=== PATIENT | female | born 1960 | race American Indian/Alaskan Native ===

== ENCOUNTER 2016-04-27 07:35 | Outpatient (CLI) | payer BC ==
--- NOTE | 2016-04-27 11:45 | Mammography Report ---
BILATERAL DIGITAL SCREENING MAMMOGRAM with CAD: 04/27/16 07:30:00 CLINICAL: Routine screening. COMPARISON:04/21/15 FINDINGS: The breasts are heterogeneously dense, which may obscure small masses. No mass, architectural distortion or suspicious calcifications. IMPRESSION: No mammographic evidence of malignancy. BI-RADS CATEGORY: 1 - - Negative RECOMMENDATION: Routine mammographic screening in one year. COMMENT: Patient follow-up letters are generated by our [employer] application. The
== END 2016-04-27 07:36 | disposition home or self-care (01) ==
LOC: MAMMO 07:35
PROVIDERS: ATTEND Hospitalist
DX: Z12.31 Encounter for screening mammogram for malignant neoplasm of breast (principal)
CPT/HCPCS: 77067; G0202

== ENCOUNTER 2017-05-30 11:00 | Outpatient (CLI) | payer BC ==
--- NOTE | 2017-05-30 13:08 | Mammography Report ---
Bilateral mammogram: Compared to 04/21/15 and 04/27/16. CAD study utilized. Findings: Scattered nodular parenchyma bilaterally. Focal 3 mm circumscribed density upper outer posterior right breast and 3 mm to 4 mm circumscribed density upper anterior left breast. No microcalcifications. Benign axilla. Impression: Circumscribed densities in right and left breast. Recommend spot mag and sonographic examination. BI-RADS CATEGORY: 0 = Needs additional imaging evaluation ACR BI-RADS MAMMOGRAPHIC CODES: 0 = Needs additional imaging evaluation; 1 = Negative; 2 = Benign; 3 = Probably benign; 4 = Suspicious; 5 = Malignant; 6 = Known biopsy-proven malignancy COMMENT: 1. Dense breast tissue, i.e., adenosis, fibrocystic changes, etc., may obscure an underlying neoplasm. 2. Approximately 10% of cancers are not detected with mammography. 3. A negative mammography report should not delay biopsy if a clinically suspicious mass is present. COMMENT: Patient follow-up letters are generated in [employer].
== END 2017-05-30 11:01 | disposition home or self-care (01) ==
LOC: MAMMO 11:00
PROVIDERS: ATTEND Family Medicine
DX: Z12.31 Encounter for screening mammogram for malignant neoplasm of breast (principal)
CPT/HCPCS: 77067

== ENCOUNTER 2017-06-22 09:47 | Outpatient (CLI) | payer BC ==
--- NOTE | 2017-06-22 11:20 | Ultrasound Report ---
Bilateral mammogram and right breast ultrasound: Additional compression imaging of both breasts is performed based on asymmetry as seen on recent study of May 30. The focal right asymmetry appears persistent on additional spot compression imaging. The asymmetry is quite small with no overtly suspicious characteristics. The focal left asymmetry is no longer identified. The right asymmetry is also present on prior study of April 2016 appearing relatively unchanged but not identified in 2016. Ultrasound imaging of the right breast in the upper-outer quadrant consistent in location with the mammographic density fails to identify any echogenic abnormality in this region. There is a benign-appearing lymph node in the axilla. Impressions: Apparently persistent right asymmetry on mammography with no ultrasound correlation. The lack of significant change since 2017 suggests a probably benign finding. Recommendation: Repeat right mammogram in 6 months to reevaluate finding. BI-RADS CATEGORY: 3 = Probably benign ACR BI-RADS MAMMOGRAPHIC CODES: 0 = Needs additional imaging evaluation; 1 = Negative; 2 = Benign; 3 = Probably benign; 4 = Suspicious; 5 = Malignant; 6 = Known biopsy-proven malignancy COMMENT: 1. Dense breast tissue, i.e., adenosis, fibrocystic changes, etc., may obscure an underlying neoplasm. 2. Approximately 10% of cancers are not detected with mammography. 3. A negative mammography report should not delay biopsy if a clinically suspicious mass is present.
== END 2017-06-22 09:48 | disposition home or self-care (01) ==
LOC: MAMMO 09:47
PROVIDERS: ATTEND Family Medicine
DX: N63.10 Unspecified lump in the right breast, unspecified quadrant (principal); N63.20 Unspecified lump in the left breast, unspecified quadrant; N64.89 Other specified disorders of breast
CPT/HCPCS: 77066